=== PATIENT | female | born 1975 | race Caucasian/White ===

== ENCOUNTER 2017-07-29 20:55 | Emergency (ER) | payer OTHER ==
[2017-07-29] MEDS ORDERED: OXYCODONE HCL IR 5 MG TABLET PO ONE (22:05)
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
[2017-07-29] MEDS ORDERED: LIDOCAINE 1% INJ-PF (10 MG/ML) 30 ML SDV INJ ONE (22:18)
--- NOTE | 2017-07-29 22:41 | RADIOLOGY REPORT (SQ) ---
EXAM DESCRIPTION: CT FACIAL AREA WITHOUT COMPLETED DATE/TIME: 07/29/2017 10:23 pm REASON FOR STUDY: rt inferior orbit and nasal pain/injury COMPARISON: None. TECHNIQUE: Noncontrasted images through the facial bones and orbits windowed for bone and soft tissu e. Additional coronal and sagittal reconstructed images reviewed. All images stored on PACS. All CT scanners at this facility use dose modulation, iterative reconstruction, and/or weight based d osing when appropriate to reduce radiation dose to as low as reasonably achievable (ALARA). [facility]: Dose Right [facility]: CareDose [facility]: Dose Right [facility]: Teradose 4D [facility]: Smart Intercom RADIATION DOSE: Up-to-date CT equipment and radiation dose reduction techniques were employed. CTDIv ol: 30.4 mGy. DLP: 526 mGy-cm. mGy. LIMITATIONS: None. FINDINGS: FACIAL BONES: Comminuted fracture of the nasal bone with less than 2 mm displacement and n o evidence of healing. ORBITS: Intact. No fracture. Symmetric intact globes and retroorbital soft tissues. PARANASAL SINUSES: Clear. No significant mucosal thickening, mass or fluid. No nasal polyps. Maxill veronica sinus outlets are patent. SOFT TISSUES: No mass or edema. INFERIOR BRAIN: Limited view. No acute findings. OTHER: No other significant finding. IMPRESSION: Comminuted nasal bone fracture. TECHNICAL DOCUMENTATION: JOB ID: [id number] Quality ID # [id number]: Final reports with documentation of one or more dose reduction techniques (e.g., Au tomated exposure control, adjustment of the mA and/or kV according to patient size, use of iterative reconstruction technique) 2010 [employer]- All Rights Reserved
[2017-07-29] MEDS ORDERED: HYDROCODONE/ACETAMINOPHEN 5-325 MG 6 TAB/DSPK PO PRN (22:46)
[2017-07-29 23:25] VITALS: BP 102/57
== END 2017-07-29 23:04 | disposition home or self-care (01) ==
LOC: ER 20:55
DX: S02.2XXA Fracture of nasal bones, initial encounter for closed fracture (principal); W20.8XXA Other cause of strike by thrown, projected or falling object, initial encounter
CPT/HCPCS: 70486; 99283

== ENCOUNTER 2020-04-21 18:03 | Emergency (ER) | payer OTHER ==
[2020-04-21] MEDS ORDERED: LIDOCAINE 1% INJ (10 MG/ML) 10 ML MDV INJ ONE (18:42)
--- NOTE | 2020-04-21 18:45 | ER Document Report ---
ED General - General Chief Complaint: Laceration Stated Complaint: CUT FINGER Time Seen by Provider: 04/21/20 18:21 Primary Care Provider: RANDA MONTALVO MD [Primary Care Provider] - Follow up as needed TRAVEL OUTSIDE OF THE [place] IN LAST 30 DAYS: No - HPI Patient complains to provider of: injury Notes: patient injured left index finger approx 1 hour prior to arrival with a saw used to trim bushes her last tdap was 2 years ago she is able to feel the tip of her finger but has two wounds at the distal aspect of the finger she has a h/o RA and is on mtx and prednisone she denies other injury - Related Data Allergies/Adverse Reactions: No Known Allergies Allergy (Unverified 07/29/17 22:15) Past Medical History - Social History Smoking Status: Never Smoker Frequency of alcohol use: Occasional Drug Abuse: None Family History: Reviewed & Not Pertinent Renal/ Medical History: Denies: Hx Peritoneal Dialysis Musculoskeletal Medical History: Reports Hx Arthritis Review of Systems - Review of Systems Constitutional: No symptoms reported EENT: No symptoms reported Cardiovascular: No symptoms reported Respiratory: No symptoms reported Gastrointestinal: No symptoms reported Genitourinary: No symptoms reported Female Genitourinary: No symptoms reported Musculoskeletal: No symptoms reported Skin: Other - wound Hematologic/Lymphatic: No symptoms reported Neurological/Psychological: No symptoms reported Physical Exam - Vital signs Vitals: Temp Pulse Resp BP Pulse Ox 98.3 F 81 20 135/72 H 97 04/21/20 18:12 04/21/20 18:12 04/21/20 18:12 04/21/20 18:12 04/21/20 18:12 Interpretation: Normal - General General appearance: Appears well, Alert - HEENT Head: Normocephalic, Atraumatic Eyes: Normal Pupils: PERRL - Respiratory Respiratory status: No respiratory distress Chest status: Nontender Breath sounds: Normal Chest palpation: Normal - Cardiovascular Rhythm: Regular Heart sounds: Normal auscultation Murmur: No - Abdominal Inspection: Normal Distension: No distension Bowel sounds: Normal Tenderness: Nontender Organomegaly: No organomegaly - Back Back: Normal, Nontender - Extremities General upper extremity: Normal inspection, Nontender, Normal color, Normal ROM, Normal temperature General lower extremity: Normal inspection, Nontender, Normal color, Normal ROM, Normal temperature, Normal weight bearing. No: Ji's sign - Neurological Neuro grossly intact: Yes Cognition: Normal Orientation: AAOx4 [place] Coma Scale Eye Opening: Spontaneous [place] Coma Scale Verbal: Oriented [place] Coma Scale Motor: Obeys Commands [place] Coma Scale Total: 15 Speech: Normal Motor strength normal: LUE, RUE, LLE, RLE Sensory: Normal - Psychological Associated symptoms: Normal affect, Normal mood - Skin Skin Temperature: Warm Skin Moisture: Dry Skin Color: Normal Notes: left distal phalanx of 2nd finger with 2 lacerations, minimal bleeding, sensation intact Course - Re-evaluation Re-evalutation: 04/21/20 18:44 tdap is up to date will xray to evaluate for fx or foreign body will provide digital block for pain and reapproximate while numb 04/21/20 20:45 xray w/o FB however 2nd phalanx fx noted wounds are macerated but no visible extension into deep tissue and wounds primarily over distal phalanx so doubt open fx - will prophylax w/ abx just in case and request outpt ortho follow up in 48 hrs for recheck and wound care instructions - she has an ortho in [place] she follows with - Vital Signs Vital signs: Temp Pulse Resp BP Pulse Ox 98.3 F 81 20 135/72 H 97 04/21/20 18:12 04/21/20 18:12 04/21/20 18:12 04/21/20 18:12 04/21/20 18:12 Procedures - Laceration/Wound Repair Left Finger 2nd digit Wound length (cm): 4 Wound's Depth, Shape: Irregular Laceration pre-procedure: Chloraprep applied Anesthetic type: 1% Lidocaine - digital block Wound explored: Clean Wound Repaired With: Sutures Suture Size/Type: 4:0, Ethilon Number of Sutures: 3 Complications: No Notes: 04/21/20 20:42 this was a jagged macerated wound and 3 sutures were placed solely to reapproximate skin to keep the area from gaping. it was the covered w/ a non- adherent dressing and finger splint Discharge - Discharge Clinical Impression: Finger fracture, left Qualifiers: Encounter type: initial encounter Finger: index finger Fracture type: closed Phalanx: middle Fracture alignment: nondisplaced Qualified Code(s): S62.651A - Nondisplaced fracture of middle phalanx of left index finger, initial encounter for closed fracture Finger laceration Qualifiers: Encounter type: initial encounter Finger: index finger Damage to nail status: without damage Foreign body presence: without foreign body Laterality: left Qualified Code(s): S61.211A - Laceration without foreign body of left index finger without damage to nail, initial encounter Condition: Stable Disposition: HOME, SELF-CARE Instructions: Laceration Care ([facility]) Additional Instructions: please take keflex as directed and follow up with your orthopedics provider for wound healing and instructions about suture removal (expect approx 10 days for sutures) Return to the ED with worsening symptoms or concerns You did have a hairline crack in your middle phalanx on that 2nd finger of your left hand. this should heal with time. please keep finger splint in place until directed otherwise by orthopedic Prescriptions: Cephalexin Monohydrate [Keflex 500 mg Capsule] 500 mg PO Q6H 5 Days capsule Referrals: RANDA MONTALVO MD [Primary Care Provider] - Follow up as needed
--- NOTE | 2020-04-21 18:49 | RADIOLOGY REPORT (SQ) ---
EXAM DESCRIPTION: FINGER LEFT IMAGES COMPLETED DATE/TIME: 04/21/2020 6:35 pm REASON FOR STUDY: laceration left index finger COMPARISON: None. NUMBER OF VIEWS: Three views. TECHNIQUE: AP view of the left hand and lateral and oblique images acquired of the left second finge r. LIMITATIONS: None. FINDINGS: MINERALIZATION: Normal. BONES: There is a nondisplaced oblique fracture through the tuft of the 2nd distal phalanx. SOFT TISSUES: There is mild soft tissue swelling and small amount of emphysema with overlying bandage at the distal aspect of the left 2nd finger, suggestive of soft tissue laceration. Otherwise, no ra diopaque foreign body is identified. IMPRESSION: Nondisplaced fracture at the tuft of the left 2nd distal phalanx. Soft tissue laceratio n at the left 2nd finger. TECHNICAL DOCUMENTATION: JOB ID: [id number] 2010 [employer]- All Rights Reserved Reading location - IP/workstation name: [email or web address]
[2020-04-21] MEDS ORDERED: LIDOCAINE 1% INJ-PF (10 MG/ML) 30 ML SDV INJ ONE (20:27)
[2020-04-21 21:09] VITALS: BP 113/63
== END 2020-04-21 21:06 | disposition home or self-care (01) ==
LOC: ER 18:03
DX: S61.211A Laceration without foreign body of left index finger without damage to nail, initial encounter (principal); S62.651A Nondisplaced fracture of middle phalanx of left index finger, initial encounter for closed fracture; W27.0XXA Contact with workbench tool, initial encounter; Y93.H9 Activity, other involving exterior property and land maintenance, building and construction
CPT/HCPCS: 99283